=== PATIENT | male | born 1990 | race African-American/Black ===

== ENCOUNTER 2018-07-07 09:53 | Emergency (ER) | payer OTHER ==
[2018-07-07 10:04] VITALS: BP 150/68; PULSE 107; TEMP 98.4; BMI 45.1
[2018-07-07] MEDS ORDERED: ACETAMINOPHEN 325 MG TABLET (FP) PO ONE (10:58)
[2018-07-07] MEDS ORDERED: ACETAMINOPHEN 325 MG TABLET (FP) ONE (11:03)
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
== END 2018-07-07 12:19 | disposition home or self-care (01) ==
LOC: JERFT 09:53
DX: S09.8XXA Other specified injuries of head, initial encounter (principal); Y04.2XXA Assault by strike against or bumped into by another person, initial encounter; Y93.89 Activity, other specified; Y92.218 Other school as the place of occurrence of the external cause; Y99.0 Civilian activity done for income or pay; Y07.59 Other non-family member, perpetrator of maltreatment and neglect
CPT/HCPCS: 70450-TC; 99281-25